=== PATIENT | female | born 1950 | race Caucasian/White ===

== ENCOUNTER 2017-05-24 11:10 | Emergency (ER) | payer OTHER ==
[2017-05-24 11:26] VITALS: BP 146/77
== END 2017-05-24 13:28 | disposition home or self-care (01) ==
LOC: ED 11:10
DX: S39.012A Strain of muscle, fascia and tendon of lower back, initial encounter (principal); X50.9XXA Other and unspecified overexertion or strenuous movements or postures, initial encounter; Y93.89 Activity, other specified; Y99.8 Other external cause status; Y92.89 Other specified places as the place of occurrence of the external cause
CPT/HCPCS: J1885; J3010; Q0162

== ENCOUNTER 2017-07-13 13:34 | Emergency (ER) | payer OTHER ==
[~2017-07-13] VITALS: Ht 162.6 cm; Wt 63.5 kg
[2017-07-13 13:47] VITALS: Ht 162.6 cm; Wt 63.5 kg
[2017-07-13 14:52] LABS: BASOPHIL % 0.8 % (0-2); PLATELET COUNT 250 x10^3mcL (130-400); RED CELL DISTRIBUTION WIDTH 13.3 % (11.5-14.5)
[2017-07-13 15:27] LABS: CALCIUM 9.1 mg/dL (8.5-10.1); CARBON DIOXIDE 27.2 mmol/L (21-32); CREATININE SERUM 1.1 mg/dL (0.6-1.0); POTASSIUM SERUM 4.2 mmol/L (3.5-5.1)
[2017-07-13 15:31] LABS: ALBUMIN 3.8 g/dL (3.4-5.0); BILIRUBIN TOTAL 0.2 mg/dL (0.20-1.00); MAGNESIUM 2.1 mg/dL (1.8-2.4); TOTAL PROTEIN, SERUM 8.2 g/dL (6.4-8.2)
[2017-07-13 15:31] LABS: microscopic required? NO
[2017-07-13 15:36] LABS: urine erythrocyte NEGATIVE (NEGATIVE)
[2017-07-13 17:32] VITALS: BP 156/91
== END 2017-07-13 17:32 | disposition home or self-care (01) ==
LOC: ED 13:34
PROVIDERS: Emergency Medicine
DX: R42 Dizziness and giddiness (principal); E78.00 Pure hypercholesterolemia, unspecified; H61.21 Impacted cerumen, right ear
CPT/HCPCS: 82962; 83880; J7030; J8597; Q0092

== ENCOUNTER 2017-08-11 20:52 | Emergency (ER) | payer OTHER ==
[~2017-08-11] VITALS: Ht 162.6 cm; Wt 62.6 kg
[2017-08-11 20:56] VITALS: Ht 162.6 cm; Wt 62.6 kg
[2017-08-11 22:44] LABS: BASOPHIL % 0.5 % (0-2); PLATELET COUNT 280 x10^3mcL (130-400); RED CELL DISTRIBUTION WIDTH 12.4 % (11.5-14.5)
[2017-08-11 22:51] LABS: CALCIUM 9.2 mg/dL (8.5-10.1); CARBON DIOXIDE 27.8 mmol/L (21-32); CREATININE SERUM 1.5 mg/dL (0.6-1.0); POTASSIUM SERUM 3.6 mmol/L (3.5-5.1)
[2017-08-11 22:52] LABS: UA SPECIFIC GRAVITY 1.015 (1.005-1.035); microscopic required? YES; urine erythrocyte NEGATIVE (NEGATIVE)
[2017-08-11 22:56] LABS: ALBUMIN 3.6 g/dL (3.4-5.0); BILIRUBIN TOTAL 0.2 mg/dL (0.20-1.00); MAGNESIUM 2.2 mg/dL (1.8-2.4); PHOSPHOROUS 3.8 mg/dL (2.5-4.9); TOTAL PROTEIN, SERUM 8.1 g/dL (6.4-8.2)
[2017-08-12 00:26] VITALS: BP 140/83
== END 2017-08-12 00:26 | disposition home or self-care (01) ==
LOC: ED 20:52
PROVIDERS: Emergency Medicine
DX: R53.1 Weakness (principal); I10 Essential (primary) hypertension; N39.0 Urinary tract infection, site not specified; N28.9 Disorder of kidney and ureter, unspecified
CPT/HCPCS: J7030